=== PATIENT | male | born 1990 | race Caucasian/White ===

== ENCOUNTER 2024-05-02 04:47 | Emergency (ER) | payer SELFPAY ==
[~2024-05-02] VITALS: Ht 193 cm; Wt 9.1 kg
[2024-05-02 05:11] LABS: BASO % 0.2 % (0.0-2.0); EOS % 0.1 % (0.0-4.0); GRAN # 9.8 K/mm3 (1.4-6.5); GRAN % 77.6 % (42.2-75.2); HEMATOCRIT 45.7 % (42.0-52.0); HEMOGLOBIN 15.3 g/dl (13.5-18.0); LYMPH # 1.6 K/mm3 (1.2-3.4); LYMPH % 12.8 % (20.0-51.0); MEAN CELL VOLUME 87 fl (80.0-100.0); MEAN CORPUSCULAR HEMOGLOBIN 29 pg (27-31); MEAN CORPUSCULAR HGB CONC 34 g/dl (33.0-37.0); MEAN PLATELET VOLUME 10.7 fl (7.4-10.4); MONO # 1.1 K/mm3 (0.1-0.6); PLATELET COUNT 216 K/mm3 (130-400); RED BLOOD COUNT 5.24 M/mm3 (4.20-5.60); REDCELL DISTRIBUTION WIDTH-CV 12.1 % (11.5-14.5)
[2024-05-02] MEDS ORDERED: NS 1,000 ML IV ONE (05:15)
[2024-05-02] MEDS ORDERED: Ondansetron 4 MG/2 ML VIAL IV ONE (05:15)
[2024-05-02 05:24] LABS: ALANINE AMINOTRANSFERASE 27 U/L (0-55); ALBUMIN 4.4 g/dL (3.5-5.0); ALKALINE PHOSPHATASE 83 U/L (40-150); ANION GAP 13 mmol/L (7-16); AST,SGOT 24 U/L (5-34); BILIRUBIN,TOTAL 0.2 mg/dL (0.2-1.2); BLOOD UREA NITROGEN 28 mg/dL (9-21); CALCIUM 9.6 mg/dL (8.4-10.2); CHLORIDE 107 mEq/L (98-107); CREATININE, serum 1.26 mg/dL (0.72-1.25); GLUCOSE 67 mg/dL (70-99); POTASSIUM 3.8 mEq/L (3.5-4.5); PROTHROMBIN TIME 10.4 SECONDS (9.7-12.8); SODIUM 142 mEq/L (136-145); TOTAL PROTEIN 7.6 g/dl (6.2-8.1)
[2024-05-02 05:32] LABS: TROPONIN-I < 0.010 ng/mL (0.00-0.033)
[2024-05-02 06:10] VITALS: TEMP 97.5
[2024-05-02 06:45] VITALS: BP 125/82; PULSE 69
== END 2024-05-02 06:56 | disposition home or self-care (01) ==
LOC: COL.ER 04:47
PROVIDERS: Emergency Medicine
DX: R25.2 Cramp and spasm (principal); E10.9 Type 1 diabetes mellitus without complications; Z79.4 Long term (current) use of insulin
CPT/HCPCS: J2405; J7030